=== PATIENT | male | born 2000 | race Hispanic/Latino ===

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

== ENCOUNTER 2020-11-26 18:17 | Emergency (ER) | payer SELFPAY ==
[2020-11-26] MEDS ORDERED: EPINEPHrine 1 MG/ML AMP ONE (19:09)
[2020-11-26] MEDS ORDERED: Famotidine/PF 20 mg/2ml Vial ONE (19:09)
[2020-11-26] MEDS ORDERED: predniSONE 20 MG TAB ONE (19:09)
== END 2020-11-26 21:42 | disposition home or self-care (01) ==
LOC: ERS 18:17
DX: T78.2XXA Anaphylactic shock, unspecified, initial encounter (principal)
CPT/HCPCS: 96372; 96374; J0171; J7512; S0028